=== PATIENT | female | born 1950 | race Caucasian/White ===

== ENCOUNTER 2017-12-21 15:42 | Outpatient (CLI) | payer MEDICARE, OTHER ==
[~2017-12-21] VITALS: Ht 153.7 cm; Wt 70.3 kg
[2017-12-21 15:58] VITALS: BP 130/74
[2017-12-21] MEDS ORDERED: METH2.5T PO (16:14)
[2017-12-21] MEDS ORDERED: CHOL200078 PO (16:14)
[2017-12-21] MEDS ORDERED: DIPH-639 PO (16:14)
[2017-12-21] MEDS ORDERED: CALC600T12 PO (16:14)
[2017-12-21] MEDS ORDERED: MELO15TA39 PO (16:14)
[2017-12-21] MEDS ORDERED: FOLI1TAB24 PO (16:14)
[2017-12-21] MEDS ORDERED: DOCU100T7 PO (16:14)
[2017-12-21] MEDS ORDERED: BETA15CR37 TP (16:14)
[2017-12-28] MEDS ORDERED: CEPH500C PO (11:04)
[2017-12-28] MEDS ORDERED: ACHD5005 PO (11:04)
== END 2017-12-21 16:15 | disposition home or self-care (01) ==
LOC: PREOP 15:42
PROVIDERS: ATTEND Podiatrist Foot & Ankle Surgery
DX: Z01.818 Encounter for other preprocedural examination (principal); M20.12 Hallux valgus (acquired), left foot; M77.42 Metatarsalgia, left foot
CPT/HCPCS: 87081

== ENCOUNTER 2018-08-05 12:00 | Outpatient (CLI) | payer MEDICARE, OTHER ==
[~2018-08-05] VITALS: Ht 153.7 cm; Wt 71.2 kg
[~2018-08-05 12:00] MED LIST: ACHD5005 PO; BETA15CR37 TP; CALC600T12 PO; CEPH500C PO; CHOL200078 PO; DIPH-639 PO; DOCU100T7 PO; FOLI1TAB24 PO; MELO15TA39 PO; MTX2.5T PO
== END 2018-08-05 12:56 | disposition home or self-care (01) ==
LOC: PREOP 12:00
PROVIDERS: ATTEND Surgery
DX: Z01.818 Encounter for other preprocedural examination (principal)

== ENCOUNTER 2018-08-10 10:23 | Day surgery (SDC) | payer MEDICARE, OTHER ==
[~2018-08-10] VITALS: Ht 153.7 cm; Wt 71.2 kg
[2018-08-10] MEDS ORDERED: LACTATED RINGERS 1,000 ML IV STA (10:31)
[2018-08-10] MEDS ORDERED: LACTATED RINGERS 1,000 ML IV ONE (10:36)
[2018-08-10] MEDS ORDERED: PROPOFOL INJECTION 50 ML IV ONE (11:13)
[2018-08-10 11:14] VITALS: BP 138/67
[2018-08-10] MEDS ORDERED: MIDAZOLAM 2 MG/2 ML (VERSED) VIAL ONE (11:14)
--- NOTE | 2018-08-10 11:20 | Progress Note-Pre Operative ---
Pre-Operative Progress Note H&P Reviewed The H&P was reviewed, patient examined and no changes noted. Date Seen by Provider: Aug 10, 2018 Time Seen by Provider: 11:20 Date H&P Reviewed: Aug 10, 2018 Time H&P Reviewed: 11:20 Pre-Operative Diagnosis: screening colonoscopy FIDELINA BRAVO DO Aug 10, 2018 11:20
--- NOTE | 2018-08-10 11:53 | Progress Note-Post Operative ---
Post-Operative Progess Note Surgeon (s)/Software Requirements Engineer (s) Surgeon FIDELINA BRAVO DO Software Requirements Engineer: na Pre-Operative Diagnosis screening colonoscopy Post-Operative Diagnosis diverticulosis, colon polyps Procedure & Operative Findings Date of Procedure 08/10/18 Procedure Performed/Findings colonoscopy with hot bx polypectomy x 2 Anesthesia Type per rotary drill operator helper Estimated Blood Loss Estimated blood loss (mL): none Specimens/Packing Specimens Removed transverse and sigmoid colon polyps FIDELINA BRAVO DO Aug 10, 2018 11:53
--- NOTE | 2018-08-10 11:54 | Discharge Inst-Simple/Standard ---
Discharge Inst-Standard Patient Instructions/Follow Up Plan of Care/Instructions/FU: 2 weeks nick Activity as Tolerated: Yes Discharge Diet: Regular Diet (high fiber) FIDELINA BRAVO DO Aug 10, 2018 11:54
[2018-08-10 12:00] VITALS: BP 121/62
[2018-08-10 12:30] VITALS: BP 122/64
[2018-08-10 12:51] VITALS: BP 122/64
--- NOTE | 2018-08-10 13:47 | Anesthesia-General Post-Op ---
MAC Patient Condition Mental Status/LOC: Same as Preop Cardiovascular: Satisfactory Nausea/Vomiting: Absent Respiratory: Satisfactory Pain: Controlled Complications: Absent Post Op Complications Complications None Follow Up Care/Instructions Patient Instructions None needed. Anesthesiology Discharge Order Discharge Order Patient is doing well, no complaints, stable vital signs, no apparent adverse anesthesia problems. No complications reported per nursing. KIMANI CABAN CRNA Aug 10, 2018 13:47
--- NOTE | 2018-08-10 20:21 | OPERATIVE REPORT ---
DATE OF SERVICE: 08/10/2018 PREOPERATIVE DIAGNOSIS: Screening colonoscopy. POSTOPERATIVE DIAGNOSIS: Diverticulosis of transverse and sigmoid colon polyp. PROCEDURE: Colonoscopy with hot biopsy polypectomy x2. SURGEON: Fidelina Lao DO ANESTHESIA: Per MANAGED CARE ANALYST. ESTIMATED BLOOD LOSS: None. COMPLICATIONS: None. INDICATION: The patient is a 67-year-old female due for screening colonoscopy. She understands risks and benefits of procedure and wished to proceed with the procedure. Consent was signed in the chart. PROCEDURE IN DETAIL: The patient was taken to the endoscopy suite, placed in left lateral recumbent position. Timeout was performed. Digital rectal exam was performed. There were no palpable polyps, masses or ulcerations. Scope was inserted into the rectum, advanced all the way to the cecum with minimal difficulty. Prep was adequate. Scope was then slowly retracted back. There were no polyps, masses or ulceration of the cecum or ascending colon. In the transverse colon, a small polyp was present, which hot biopsy polypectomy was performed. Scope was continued to be slowly retracted back. No polyps, masses or ulcerations within the descending colon. In the sigmoid colon, there was minimal to moderate amount of diverticulosis present. Another polyp was present, which hot biopsy polypectomy was performed. Scope was continued to be slowly retracted back to the rectum, where it was also retroflexed noting no other pathology. Scope was returned to its normal position, slowly withdrawn until completely removed. The patient tolerated the procedure well without any complication. She was taken to recovery room in stable condition. RECOMMENDATIONS: The patient will follow up in the office in 2 weeks to discuss pathology and results. The patient will need a repeat colonoscopy in 5 years. If she has any problems prior to that, she should be reevaluated at that time. Job ID: [id number] DocumentID: [id number] Dictated Date: 08/10/2018 11:56:45 Taxation Accountant Date: 08/10/2018 20:20:42 Dictated By: FIDELINA LAO DO
== END 2018-08-10 12:35 | disposition home or self-care (01) ==
LOC: ENDO 10:23
PROVIDERS: ATTEND Surgery
DX: Z12.11 Encounter for screening for malignant neoplasm of colon (principal); K63.5 Polyp of colon; K57.30 Diverticulosis of large intestine without perforation or abscess without bleeding; Z85.3 Personal history of malignant neoplasm of breast; M06.9 Rheumatoid arthritis, unspecified; F41.9 Anxiety disorder, unspecified; F32.9 Major depressive disorder, single episode, unspecified; Z79.899 Other long term (current) drug therapy; Z88.1 Allergy status to other antibiotic agents; Z90.13 Acquired absence of bilateral breasts and nipples

== ENCOUNTER → 2019-05-03 | Outpatient (CLI) | payer MEDICARE, OTHER ==
--- NOTE | 2019-05-03 18:49 | Diagnostic Imaging Report ---
PROCEDURE: CT neck soft tissue without contrast. TECHNIQUE: Multiple contiguous axial images were obtained through the neck without the use of intravenous contrast. Auto Exposure Controls were utilized during the CT exam to meet ALARA standards for radiation dose reduction. INDICATION: Esophageal obstruction. EXAMINATION: Noncontrasted soft tissue neck CT. FINDINGS: Cervical and visualized thoracic esophagus is nondilated. No segmental distention. No paraesophageal gas. No evidence for perforation, fluid collection, or mass. No adenopathy is apparent; however, detection of lymph nodes is limited by the absence of contrast media. Parotid, submandibular, and thyroid are unremarkable. Structures of the larynx show no deformation. No airway embarrassment. The prevertebral and retropharyngeal spaces are normal. No suspicious bony lesion. Pulmonary apices and thoracic inlet are unremarkable. IMPRESSION: No abnormality identified at noncontrasted soft tissue neck CT. Dictated by: Dictated on workstation # [id number]
== END ==
LOC: RAD 16:20
PROVIDERS: ATTEND Family Medicine
DX: K22.2 Esophageal obstruction (principal)
CPT/HCPCS: 70490

== ENCOUNTER 2019-11-01 13:22 | Outpatient (RCR) | payer MEDICARE, OTHER ==
[~2019-11-01 13:22] MED LIST changes: +BETA15CR14 TP; -BETA15CR37 TP
== END 2019-11-24 13:28 | disposition home or self-care (01) ==
PROVIDERS: ATTEND Nurse Practitioner Family
DX: M22.41 Chondromalacia patellae, right knee (principal); M70.51 Other bursitis of knee, right knee; M76.51 Patellar tendinitis, right knee; Z85.3 Personal history of malignant neoplasm of breast; Z98.1 Arthrodesis status; Z98.890 Other specified postprocedural states

== ENCOUNTER → 2020-05-23 | Outpatient (CLI) | payer MEDICARE, OTHER ==
[~2020-05-23] MED LIST changes: -CALC600T12 PO; +CLC600T PO
--- NOTE | 2020-05-23 12:03 | Diagnostic Imaging Report ---
PROCEDURE: CT head and neck without contrast. TECHNIQUE: Contiguous axial images were obtained from the skull base through the vertex. Noncontrast axial images were then obtained of the soft tissue of the neck. Auto Exposure Controls were utilized during the CT exam to meet ALARA standards for radiation dose reduction. INDICATION: 6th nerve palsy with double vision, dizziness and difficulty swallowing. Correlation is made with prior CT neck study from 05/03/2019. CT HEAD: The ventricles and sulci are within normal limits. No sulcal effacement, midline shift or hemorrhage is detected. Cisterns are patent. Visualized paranasal sinuses are clear. IMPRESSION: No acute intracranial process is detected. CT neck: The posterior nasopharynx and oropharynx are unremarkable. Parapharyngeal fat planes are preserved. The epiglottis and larynx are unremarkable. No thyroid mass is detected. Bilateral submandibular and parotid glands appear to be unremarkable. No definite cervical lymphadenopathy is seen, however evaluation is limited due to absence of intravenous contrast. IMPRESSION: Stable unremarkable noncontrast CT of the neck. Dictated by: Dictated on workstation # [id number]
== END ==
LOC: RAD 10:00
PROVIDERS: ATTEND Optometrist
DX: H49.20 Sixth [abducent] nerve palsy, unspecified eye (principal); R13.10 Dysphagia, unspecified; R42 Dizziness and giddiness
CPT/HCPCS: 70450; 70490

== ENCOUNTER → 2022-08-05 | Outpatient (CLI) | payer MEDICARE, OTHER ==
[~2022-08-05] MED LIST changes: +CALC600T91 PO; +CATHETER FLUSH 10 ML SYR IV PRN; -CLC600T PO; -FOLI1TAB24 PO; +FOLI1TAB33 PO; +HOLD METFORMIN - RECEIVED CONTRAST 20 ML VIAL IV SCH; +IOHEXOL 350 MG/ML 100 ML (OMNIPAQUE 350) VIAL IV ONE; +NS 100 ML (IVPB) BAG IV ONE
[2022-08-05 16:17] LABS: HEMATOCRIT 38 % (35-52); HEMOGLOBIN 12.5 g/dL (11.5-16.0); MEAN CORPUSCULAR HEMOGLOBIN 31 pg (25-34); MEAN CORPUSCULAR HGB CONC 33 g/dL (32-36); MEAN CORPUSCULAR VOLUME 94 fL (80-99); PLATELET COUNT 244 10^3/uL (130-400); WHITE BLOOD COUNT 5.5 10^3/uL (4.3-11.0)
[2022-08-05 16:38] LABS: ALBUMIN 4.1 GM/DL (3.2-4.5); BILIRUBIN,TOTAL 0.4 MG/DL (0.1-1.0); CALCIUM 9.1 MG/DL (8.5-10.1); CREATININE SERUM 0.68 MG/DL (0.60-1.30); POTASSIUM 3.5 MMOL/L (3.6-5.0)
[2022-08-05 16:58] LABS: TSH (THYROID ANALYZER) 0.67 UIU/ML (0.35-4.94)
--- NOTE | 2022-08-05 17:20 | Diagnostic Imaging Report ---
PROCEDURE: CT angiography of the head and CT angiography of the neck with and without contrast. TECHNIQUE: Contiguous noncontrast images were obtained from the skull base through the vertex. After intravenous contrast administration, helical CT angiography of the neck was performed. Source data was reformatted into 3D MIP projections. Delayed postcontrast acquisition was also obtained. Auto Exposure Controls were utilized during the CT exam to meet ALARA standards for radiation dose reduction. INDICATION: Left-sided head pain. Blurry vision. Dizziness. COMPARISON: 05/23/2020. FINDINGS: CTA Neck: The visualized portions of the aortic arch demonstrate no evidence of aneurysm or dissection. There is conventional branching pattern of the great vessels of the aorta. The brachiocephalic artery is normal in course and caliber. The right and left common carotid origins are unremarkable. The origin of the left subclavian artery is patent. The common carotid arteries and internal carotid arteries demonstrate a mildly tortuous course. There is calcified atherosclerotic plaque in the bilateral carotid bulbs and proximal internal carotid arteries without flow-limiting stenosis. No evidence of dissection in the carotid systems. The external carotid arteries are patent and unremarkable. The left vertebral artery is dominant. The origin of the right vertebral artery is seen and is unremarkable. The origin of the left vertebral artery is seen and is unremarkable. There is no focal stenosis seen within the neck. There is no dissection. The vertebral arteries are well visualized to up to the level of the basilar artery. The osseous structures of the cervical spine are unremarkable. Included views through the lung apices demonstrate no focal consolidation. CTA brain: The intracranial portion of the bilateral ICA are unremarkable without stenosis or aneurysm. No stenosis is seen in the bilateral anterior, middle, and posterior cerebral arteries. No evidence of aneurysm the [place]. In the posterior circulation, both of the vertebral arteries demonstrate normal opacification. Both the right and left PICA arteries are identified. The basilar artery is normal in course and caliber. The terminal branch vessels including the superior cerebellar arteries unremarkable. CT head: No large acute territorial ischemia, mass, or hemorrhage. No midline shift or mass effect. The ventricles, cortical sulci, and basilar cisterns are patent and unremarkable. The calvarium is intact. The visualized paranasal sinuses are clear. IMPRESSION: 1. No stenosis or aneurysm in the [place]. No large vessel occlusion. 2. No stenosis or dissection the bilateral carotid and vertebral arteries. 3. No large acute territorial ischemia, mass, or hemorrhage. Dictated by: Dictated on workstation # [id number]
== END ==
LOC: RAD 15:27
PROVIDERS: ATTEND Physician Assistant
DX: H49.20 Sixth [abducent] nerve palsy, unspecified eye (principal); H53.2 Diplopia; R51.9 Headache, unspecified; R42 Dizziness and giddiness
CPT/HCPCS: 36415; 70496; 70498; 80053; 83519; 84443; 85027; 86376; 86800

== ENCOUNTER → 2022-08-12 | Outpatient (CLI) | payer MEDICARE, OTHER ==
[~2022-08-12] MED LIST changes: -CATHETER FLUSH 10 ML SYR IV PRN; +GADOTERATE 0.5 MMOL/ML (CLARISCAN) 15 ML VIAL IV ONE; -HOLD METFORMIN - RECEIVED CONTRAST 20 ML VIAL IV SCH; -IOHEXOL 350 MG/ML 100 ML (OMNIPAQUE 350) VIAL IV ONE; -NS 100 ML (IVPB) BAG IV ONE
--- NOTE | 2022-08-12 11:29 | Diagnostic Imaging Report ---
ClINICAL INDICATION: Patient has double vision in her left eye and left eye is crossing-over. Patient had a similar episode 2 years ago which lasted 6 weeks. EXAM: MRI of the brain/orbits performed without and with IV contrast. Multiplanar, multisequence imaging was obtained. COMPARISON: CT angiogram of the head/neck dated 08/05/2022. FINDINGS: There is no evidence of acute cerebral infarct, intracranial hemorrhage, or gross mass effect. There is no significant abnormality in the region of the basal cisterns. The brain parenchymal volume appears appropriate for patient's age. There are multiple focal patchy areas of high T2 signal white matter changes throughout both cerebral hemispheres, periventricular regions, and kranthi, likely related to chronic small vessel ischemic disease. There is normal mcguire-white matter distinction. There is no significant midline shift or herniation. The [place] vascular structures show no gross abnormality as visualized. The pituitary gland, sella, and suprasellar regions are unremarkable as visualized. There is no evidence of hydrocephalus. The basal cisterns are unremarkable. There are post operative changes to both globes which may be related to lens implants. Otherwise, both globes and orbits are unremarkable. It is noted that the supraclinoid right ICA abuts the undersurface of the cisternal portion of the right optic nerves seen on coronal T2 sequence series 8, images 7 and 8. There is no abnormal signal involving the optic nerves. There is no abnormal enhancement seen. Otherwise, the optic tracts, optic chiasm, cisternal portions of both optic nerves, and the intraorbital optic nerves are unremarkable. The skull, extracranial soft tissue, and orbits are unremarkable. There is minimal mucosal thickening involving the ethmoid sinus. The temporal bones show no significant abnormality. IMPRESSION: 1: There is no evidence of an acute intracranial process. There is no abnormal IV contrast enhancement. There is no significant abnormality in the basal cistern regions. 2: The paraclinoid right ICA abuts the undersurface of the cisternal portion of the right optic nerve which is of unknown significance and may be an incidental finding. There is no abnormal signal involving this portion of the nerve. The remainder of the optic nerves, globes, and orbits is unremarkable. 3: Mild age-related brain parenchymal changes with chronic small vessel ischemic disease. Dictated by: Dictated on workstation # [id number]
== END ==
LOC: RAD 08:59
PROVIDERS: ATTEND Physician Assistant
DX: I67.82 Cerebral ischemia (principal); G31.89 Other specified degenerative diseases of nervous system
CPT/HCPCS: 70553

== ENCOUNTER → 2023-02-03 | Outpatient (CLI) | payer MEDICARE, OTHER ==
[~2023-02-03] MED LIST changes: -GADOTERATE 0.5 MMOL/ML (CLARISCAN) 15 ML VIAL IV ONE
--- NOTE | 2023-02-03 09:29 | Diagnostic Imaging Report ---
INDICATION: Pain since this morning Right ankle 02/03/2023 FINDINGS: 3 views of the ankle. There is plantar calcaneal spurring. A large well-corticated osseous fragment lies adjacent to the medial malleolus chronic in appearance. There is a vague density adjacent to the tip of the distal fibula age indeterminate. Ankle mortise intact talar dome unremarkable. IMPRESSION: 1. Chronic findings with an age-indeterminate osseous fragment at the distal tip of the fibula. An acute avulsion fracture is possible. Correlate with symptoms. Dictated by: Dictated on workstation # [id number]
== END ==
LOC: RAD 08:58
PROVIDERS: ATTEND Family Medicine
DX: M25.571 Pain in right ankle and joints of right foot (principal); M25.471 Effusion, right ankle
CPT/HCPCS: 73610